=== PATIENT | female | born 1935 | race Asian ===

== ENCOUNTER 2017-11-17 10:20 | Inpatient (IN) | payer OTHER ==
[~2017-11-17] VITALS: Ht 149.9 cm; Wt 49.0 kg
[~2017-11-17 10:20] MED LIST: ACTOPLUS MET1 TABLE1 PO; ADVIL,NUPRIN,M200 MG PO; ASPIRIN E.C.81 M1 PO; Antivert PO; BONIVA150 MG PO; CALCIUM CARBON600 M1 PO; DIOVAN80 MG PO; LIPITOR40 MG PO; NEXIUM40 MG PO; WYGESIC,DARV1 TABLET PO
[2017-11-17 10:35] LABS: BASOPHIL (%) 0.1 % (0-1); EOSINOPHIL (%) 0 % (0-5); HEMATOCRIT 43.4 % (36.0-46.0); HEMOGLOBIN 14.9 G/DL (11.9-15.5); IMMATURE GRANULOCYTE (%) 0.4 % (0.0-0.7); LYMPHOCYTE (%) 10.4 % (15-42); LYMPHOCYTE COUNT 0.9 K/uL (1.0-2.8); MCH 31.4 PG (29.0-34.0); MCHC 34.3 G/DL (30.0-36.0); MCV 91.4 FL (83-99); MONOCYTE (%) 2.5 % (3-12); MONOCYTE COUNT 0.2 K/uL (0-0.8); NEUTROPHIL (%) 86.6 % (45-76); NEUTROPHIL COUNT 7.8 K/uL (1.8-6.4); PLATELET COUNT 200 K/uL (156-360); RBC DIS.WIDTH-CV 12.9 % (11.8-14.6); RBC DIS.WIDTH-SD 43.9 % (39-53); RED BLOOD COUNT 4.75 M/uL (3.80-5.20)
[2017-11-17 10:41] LABS: INTER. NORMALIZED RATIO 1.1
[2017-11-17 10:43] LABS: PTT 33.6 SEC (25-37)
[2017-11-17 10:48] LABS: AMYLASE 49 IU/L (1-118); CHLORIDE 102 mEq/L (99-109); POTASSIUM 3.1 mEq/L (3.7-5.4); SODIUM 142 mEq/L (136-147)
[2017-11-17 10:50] LABS: GLUCOSE 168 mg/dL (70-99)
[2017-11-17 10:53] LABS: SERUM ETHYL ALCOHOL < 10 mg/dL
[2017-11-17 10:54] LABS: CREATININE 0.9 mg/dL (0.6-1.3); GFR ESTIMATE (CALCULATED) > 59 mL/min/
[2017-11-17 10:55] LABS: UREA NITROGEN (BUN) 14 mg/dL (9-23)
[2017-11-17 10:57] LABS: LIPASE 10 U/L (1.0-51.0); TROP-I INTERPRETATION NEGATIVE; TROPONIN-I < 0.01 ng/mL (0.0-0.30)
[2017-11-17 20:34] VITALS: BP 172/93
[2017-11-17 21:02] VITALS: BP 146/69
[2017-11-17 21:18] VITALS: BP 124/63
[2017-11-17 22:03] VITALS: BP 170/84
[2017-11-17 22:38] VITALS: BP 164/89
[2017-11-17 23:02] VITALS: BP 153/90
[2017-11-18] VITALS (25 sets, daily range): BP systolic 137–203; BP diastolic 65–111
[2017-11-18 05:48] LABS: HEMATOCRIT 39.2 % (36.0-46.0); HEMOGLOBIN 12.9 G/DL (11.9-15.5); MCH 30.5 PG (29.0-34.0); MCHC 32.9 G/DL (30.0-36.0); MCV 92.7 FL (83-99); PLATELET COUNT 188 K/uL (156-360); RBC DIS.WIDTH-CV 13.4 % (11.8-14.6); RBC DIS.WIDTH-SD 45.5 % (39-53); RED BLOOD COUNT 4.23 M/uL (3.80-5.20); WHITE BLOOD COUNT 10.3 K/uL (4.1-10.2)
[2017-11-18 05:50] LABS: INTER. NORMALIZED RATIO 1.1
[2017-11-18 05:53] LABS: PTT 31.6 SEC (25-37)
[2017-11-18 06:09] LABS: CHLORIDE 105 MEQ/L (99-109); CREATININE 0.9 MG/DL (0.6-1.3); GFR ESTIMATE (CALCULATED) > 59 mL/min/; GLUCOSE 170 mg/dL (70-99); POTASSIUM 3.6 MEQ/L (3.7-5.4); SODIUM 140 MEQ/L (136-147)
[2017-11-18 06:12] LABS: UREA NITROGEN (BUN) 29 mg/dL (9-23)
[2017-11-18 09:22] LABS: HEMOGLOBIN A1c (GLYCOHEMOGLOB) 6.9 % (Below 5.7)
[2017-11-19] VITALS (25 sets, daily range): BP systolic 114–191; BP diastolic 62–139
[2017-11-20] VITALS (19 sets, daily range): BP systolic 128–185; BP diastolic 69–97
[2017-11-21] VITALS (10 sets, daily range): BP systolic 112–200; BP diastolic 60–100
[2017-11-21 23:48] LABS: APPEARANCE CLEAR ((CLEAR)); BILIRUBIN NEGATIVE; BLOOD SMALL; COLOR YELLOW ((YELLOW)); GLUCOSE (STRIP) 150; KETONES NEGATIVE; LEUKOCYTES NEGATIVE; NITRITE NEGATIVE; PROTEIN (STRIP) 30; SPECIFIC GRAVITY 1.012 (1.000-1.030); UROBILINOGEN 0.2 MG/DL (0.2-1.0)
[2017-11-21 23:52] LABS: BACTERIA RARE /HPF; EPITHELIAL CELLS RARE /HPF; MUCUS TRACE /LPF; RED BLOOD CELLS 0-5 /HPF (0-5)
[2017-11-22] VITALS (8 sets, daily range): BP systolic 112–189; BP diastolic 65–98
[2017-11-22 09:10] LABS: BASOPHIL (%) 0.4 % (0-1); EOSINOPHIL (%) 0.1 % (0-5); HEMATOCRIT 39.2 % (36.0-46.0); HEMOGLOBIN 12.9 G/DL (11.9-15.5); IMMATURE GRANULOCYTE (%) 0.5 % (0.0-0.7); LYMPHOCYTE (%) 16.8 % (15-42); LYMPHOCYTE COUNT 1.3 K/uL (1.0-2.8); MCH 30.4 PG (29.0-34.0); MCHC 32.9 G/DL (30.0-36.0); MCV 92.2 FL (83-99); MONOCYTE (%) 8.8 % (3-12); MONOCYTE COUNT 0.7 K/uL (0-0.8); NEUTROPHIL (%) 73.4 % (45-76); NEUTROPHIL COUNT 5.6 K/uL (1.8-6.4); PLATELET COUNT 180 K/uL (156-360); RBC DIS.WIDTH-CV 12.9 % (11.8-14.6); RBC DIS.WIDTH-SD 43.5 % (39-53); RED BLOOD COUNT 4.25 M/uL (3.80-5.20); WHITE BLOOD COUNT 7.6 K/uL (4.1-10.2)
[2017-11-22 09:38] LABS: CHLORIDE 101 MEQ/L (99-109); CREATININE 0.7 MG/DL (0.6-1.3); GFR ESTIMATE (CALCULATED) > 59 mL/min/; GLUCOSE 175 mg/dL (70-99); POTASSIUM 2.5 MEQ/L (3.7-5.4); SODIUM 143 MEQ/L (136-147); UREA NITROGEN (BUN) 26 mg/dL (9-23)
[2017-11-23] VITALS (8 sets, daily range): BP systolic 142–180; BP diastolic 74–92
[2017-11-23 05:47] LABS: CHLORIDE 104 MEQ/L (99-109); CREATININE 0.6 MG/DL (0.6-1.3); GFR ESTIMATE (CALCULATED) > 59 mL/min/; GLUCOSE 130 mg/dL (70-99); MAGNESIUM 2.1 mg/dl (1.3-2.7); POTASSIUM 2.8 MEQ/L (3.7-5.4); SODIUM 142 MEQ/L (136-147); UREA NITROGEN (BUN) 24 mg/dL (9-23)
[2017-11-24 02:44] VITALS: BP 158/78
[2017-11-24 06:39] LABS: CHLORIDE 106 MEQ/L (99-109); CREATININE 0.6 MG/DL (0.6-1.3); GFR ESTIMATE (CALCULATED) > 59 mL/min/; GLUCOSE 137 mg/dL (70-99); POTASSIUM 3.2 MEQ/L (3.7-5.4); SODIUM 142 MEQ/L (136-147); UREA NITROGEN (BUN) 21 mg/dL (9-23)
[2017-11-24 08:04] VITALS: BP 168/79
[2017-11-24 10:10] VITALS: BP 130/79
[2017-11-24 13:27] VITALS: BP 137/67
[2017-11-24 17:36] VITALS: BP 142/82
[2017-11-24 20:45] VITALS: BP 155/74
[2017-11-25 00:22] VITALS: BP 168/77
[2017-11-25 05:52] LABS: HEMATOCRIT 37.6 % (36.0-46.0); HEMOGLOBIN 12.4 G/DL (11.9-15.5); MCH 30.5 PG (29.0-34.0); MCV 92.4 FL (83-99); PLATELET COUNT 205 K/uL (156-360); RBC DIS.WIDTH-CV 13.3 % (11.8-14.6); RBC DIS.WIDTH-SD 45.1 % (39-53); RED BLOOD COUNT 4.07 M/uL (3.80-5.20); WHITE BLOOD COUNT 6.4 K/uL (4.1-10.2)
[2017-11-25 06:20] LABS: CHLORIDE 105 MEQ/L (99-109); CREATININE 0.6 MG/DL (0.6-1.3); GFR ESTIMATE (CALCULATED) > 59 mL/min/; GLUCOSE 127 mg/dL (70-99); POTASSIUM 3.3 MEQ/L (3.7-5.4); SODIUM 142 MEQ/L (136-147); UREA NITROGEN (BUN) 19 mg/dL (9-23)
[2017-11-25 07:36] VITALS: BP 158/76
[2017-11-25 11:15] VITALS: BP 128/67
[2017-11-25 15:55] VITALS: BP 136/71
[2017-11-26 00:03] VITALS: BP 136/69
[2017-11-26 07:01] LABS: CHLORIDE 106 MEQ/L (99-109); CREATININE 0.6 MG/DL (0.6-1.3); GFR ESTIMATE (CALCULATED) > 59 mL/min/; GLUCOSE 124 mg/dL (70-99); POTASSIUM 3.6 MEQ/L (3.7-5.4); SODIUM 140 MEQ/L (136-147); UREA NITROGEN (BUN) 18 mg/dL (9-23)
[2017-11-26 07:37] VITALS: BP 167/85
[2017-11-26 10:46] VITALS: BP 132/71
[2017-11-26] MEDS ORDERED: LOSARTAN POTAS100 MG PO (13:34)
[2017-11-26] MEDS ORDERED: NIFEDIPINE ER60 MG PO (13:34)
[2017-11-26] MEDS ORDERED: Tylenol PO (13:34)
[2017-11-26] MEDS ORDERED: LEVETIRACETAM500 MG PO (13:35)
[2017-11-26 16:20] VITALS: BP 178/89
[2017-11-26 17:18] VITALS: BP 145/71
[2017-11-26 19:53] VITALS: BP 130/60
[2017-11-27 00:47] VITALS: BP 143/59
[2017-11-27 04:22] VITALS: BP 127/61
[2017-11-27 08:26] VITALS: BP 133/62
[2017-11-27 12:11] VITALS: BP 141/70
[2017-11-27 17:20] VITALS: BP 149/72
[2017-11-27 23:22] VITALS: BP 141/74
[2017-11-28 08:17] VITALS: BP 138/75
[2017-11-28 16:09] VITALS: BP 135/79
[2017-11-28 21:15] VITALS: BP 122/68
[2017-11-28 23:34] VITALS: BP 102/67
[2017-11-29 07:51] VITALS: BP 114/66
== END 2017-11-29 09:34 | DRG 65 ==
LOC: EME → EDBD 10:20 → EDOF 15:28 → 4WEST 15:28 → 4EAST 15:28 → ENRESERV 15:32 → EDOF 18:13 → ENRESERV 18:16 → 4WEST 20:30 → ENRESERV 11-18 17:22 → CANRESERV 11-18 19:50 → 4WEST 11-18 20:38 → ENRESERV 11-20 11:19 → CANRESERV 11-20 11:37 → 4WEST 11-20 11:48 → ENRESERV 11-20 12:50 → 4EAST 11-20 13:58 → ENRESERV 11-23 10:08 → 5EAST 11-23 15:44
PROVIDERS: Emergency Medicine; Hospitalist; Internal Medicine; Physician Assistant; Specialist; Surgery
DX: I61.8 Other nontraumatic intracerebral hemorrhage (principal); G81.91 Hemiplegia, unspecified affecting right dominant side; R56.9 Unspecified convulsions; R47.01 Aphasia; R13.10 Dysphagia, unspecified; E87.6 Hypokalemia; E11.9 Type 2 diabetes mellitus without complications; F03.90 Unspecified dementia, unspecified severity, without behavioral disturbance, psychotic disturbance, mood disturbance, and anxiety; I10 Essential (primary) hypertension; E78.5 Hyperlipidemia, unspecified; K21.9 Gastro-esophageal reflux disease without esophagitis; R40.2410 Glasgow coma scale score 13-15, unspecified time; Z51.5 Encounter for palliative care; F17.210 Nicotine dependence, cigarettes, uncomplicated; Z86.79 Personal history of other diseases of the circulatory system; Z79.84 Long term (current) use of oral hypoglycemic drugs
CPT/HCPCS: 70450; 71045; 80048; 81003; 82150; 82948; 83036; 83690; 83735; 84132; 84484; 85025; 85027; 85610; 85730; 86850; 86900; 86901; 87086; 87641; 92507 GN; 92526 GN; 92610 GN; 97530 GO; 97530 GP; 99281; 99285; G0480; J0360; J1815; J1953; J2270; J3480; J7030; J7050; S0028